=== PATIENT | female | born 1975 | race Caucasian/White ===

== ENCOUNTER 2017-01-22 13:52 | Emergency (ER) | payer SELFPAY ==
[2017-01-22 14:08] VITALS: TEMP 99
[2017-01-22] MEDS ORDERED: AZITHROMYCIN 250 MG TAB PO ONE (14:31)
[2017-01-22] MEDS ORDERED: cefTRIAXone SODIUM 1 GM VIAL IM ONE (14:31)
[2017-01-22] MEDS ORDERED: LIDOCAINE 1% 10 ML VIAL INJ ONE (14:34)
--- NOTE | 2017-01-22 14:36 | ED.PDOC ---
History of Present Illness - General Chief Complaint: ENT Problem Stated Complaint: Sore throat Time Seen by Provider: 01/22/17 14:07 Source: patient Exam Limitations: no limitations - History of Present Illness Initial Comments: the patient is a 41-year-old female presenting to the emergency room secondary to pharyngitis present for the last 2448 hrs. Symptoms are fairly isolated. Mild pain with swallowing. No shortness of breath. No rash. No fevers. No urinary symptoms. Timing/Duration: 24 hours Severity: mild Improving Factors: nothing Worsening Factors: nothing Associated Symptoms: denies symptoms Allergies/Adverse Reactions: Allergies NO KNOWN ALLERGY Allergy (Verified 05/10/12 13:11) Home Medications: Ambulatory Orders Famotidine [Pepcid Tab] 20 mg PO DAILY 01/22/17 Review of Systems - Review of Systems Constitutional: States: no symptoms reported EENTM: States: throat pain Respiratory: States: no symptoms reported Cardiology: States: no symptoms reported Gastrointestinal/Abdominal: States: no symptoms reported Genitourinary: States: no symptoms reported Musculoskeletal: States: no symptoms reported Skin: States: no symptoms reported Neurological: States: no symptoms reported Endocrine: States: no symptoms reported All other Systems: No Change from Baseline Past Medical History (General) - Patient Medical History Hx Stroke: No Hx Congestive Heart Failure: No Hx Diabetes: No Hx Gastroesophageal Reflux: Yes Hx MRSA: No Surgical History: cholecystectomy, other - Vaccination History Hx Influenza Vaccination: No Hx Pneumococcal Vaccination: No - Social History Hx Tobacco Use: Yes - Quit 12/2016 Hx Alcohol Use: No - Female History Patient is a Female of Child Bearing Age (10 -59 yrs old): Yes Patient : No Family Medical History - Family History Mother Living Status: Still Living Hx Family Hypertension: Yes Hx Family Stroke: Yes Hx Family Diabetes: Yes Physical Exam - Physical Exam General Appearance: Alert, Comfortable, No apparent distress Eye Exam: bilateral normal Ears, Nose, Throat: pharyngeal erythema - moderate posterior erythema bilaterally. No evidence of abscess. No significant exudate. Mild tonsillar swelling. Neck: full range of motion, normal inspection Respiratory: lungs clear, normal breath sounds, no respiratory distress, no accessory muscle use Cardiovascular/Chest: normal peripheral pulses, regular rate, rhythm, no edema Peripheral Pulses: radial,right: 2+, radial,left: 2+ Gastrointestinal/Abdominal: non tender, soft Rectal Exam: deferred Back Exam: normal inspection, no CVA tenderness Extremity: normal range of motion, non-tender, normal inspection, no pedal edema , normal capillary refill Neurologic: alert, normal mood/affect, oriented x 3 Skin Exam: normal color Comments: Vital Signs - 24 hr 01/22/17 14:07 Temperature 99.0 F Pulse Rate [ 68 Left Radial] Respiratory 20 Rate Blood Pressure 125/80 [Left Arm] O2 Sat by Pulse 97 Oximetry Progress - Progress Progress: 01/22/17 14:34 rapid strep is negative. the patient is a 41-year-old female presenting with a significant pharyngitis. She has tested negative for strep. The patient is being given a dose of oral antibiotics here to cover other potential bacterial pathogens, given her level of discomfort, however a viral source is most likely. No evidence of abscess formation. Motrin can be used for discomfort. ER warnings were given for any significant worsening. Departure - Departure Clinical Impression: Pharyngitis Qualifiers: Pharyngitis/tonsillitis etiology: unspecified etiology Qualified Code(s): J02.9 - Acute pharyngitis, unspecified Disposition: Discharge to Home or Self Care Condition: Fair Departure Forms: ED Discharge - Pt. Copy, Patient Portal Self Enrollment Instructions: Sore Throat Diet: regular diet Activity: increase activity as tolerated Home Medications: Ambulatory Orders Famotidine [Pepcid Tab] 20 mg PO DAILY 01/22/17 Additional Instructions: the patient is a 41-year-old female presenting with a significant pharyngitis. She has tested negative for strep. The patient is being given a dose of oral antibiotics here to cover other potential bacterial pathogens, given her level of discomfort, however a viral source is most likely. No evidence of abscess formation. Motrin can be used for discomfort. ER warnings were given for any significant worsening.
[2017-01-22 15:27] VITALS: BP 124/80; O2SAT 98
== END 2017-01-22 15:03 | disposition home or self-care (01) ==
LOC: ER 13:52
DX: J02.9 Acute pharyngitis, unspecified (principal); Z87.891 Personal history of nicotine dependence
CPT/HCPCS: 87070; 87651; J0696; Q0144

== ENCOUNTER → 2017-11-16 | Outpatient (CLI) | payer OTHER | LOC: LAB.O 17:46 | PROVIDERS: ATTEND Nurse Practitioner Family | DX: N93.9 Abnormal uterine and vaginal bleeding, unspecified (principal) ==

== ENCOUNTER 2018-05-02 15:27 | Emergency (ER) | payer OTHER ==
[2018-05-02] MEDS ORDERED: IBUPROFEN 200 MG TAB PO ONE (15:50)
--- NOTE | 2018-05-02 16:27 | ED.PDOC ---
History of Present Illness - General Chief Complaint: ENT Problem Stated Complaint: Cough, congestion, sore throat Time Seen by Provider: 05/02/18 15:37 Source: patient Exam Limitations: no limitations - History of Present Illness Initial Comments: the patient is a 43-year-old female presenting to emergency room secondary to cough sore throat and runny nose for the last 24 hours. Mild malaise possible low-grade fevers and mild body aches. She has been exposed to strep. No real shortness of breath. Vital signs are reassuring with the exception of mild fever. Timing/Duration: 24 hours Severity: moderate Improving Factors: nothing Worsening Factors: nothing Associated Symptoms: cough, fever/chills, loss of appetite, malaise Allergies/Adverse Reactions: Allergies NO KNOWN ALLERGY Allergy (Verified 05/02/18 15:47) Home Medications: Ambulatory Orders Famotidine [Pepcid Tab] 20 mg PO DAILY 01/22/17 Review of Systems - Review of Systems Constitutional: States: fever, malaise EENTM: States: nose congestion, throat pain Respiratory: States: cough Cardiology: States: no symptoms reported Gastrointestinal/Abdominal: States: no symptoms reported Genitourinary: States: no symptoms reported Musculoskeletal: States: no symptoms reported Skin: States: no symptoms reported Neurological: States: no symptoms reported Endocrine: States: no symptoms reported All other Systems: No Change from Baseline Past Medical History (General) - Patient Medical History Hx Stroke: No Hx Congestive Heart Failure: No Hx Diabetes: No Hx Gastroesophageal Reflux: Yes Hx MRSA: No Surgical History: cholecystectomy, other - Vaccination History Hx Influenza Vaccination: No Hx Pneumococcal Vaccination: No - Social History Hx Tobacco Use: - Vapes Hx Alcohol Use: No - Female History Patient is a Female of Child Bearing Age (10 -59 yrs old): Yes Patient : No Family Medical History - Family History Mother Living Status: Still Living Hx Family Hypertension: Yes Hx Family Stroke: Yes Hx Family Diabetes: Yes Physical Exam - Physical Exam General Appearance: Alert, Comfortable, No apparent distress Eye Exam: bilateral normal Ears, Nose, Throat: hearing grossly normal, nasal congestion, pharyngeal erythema Neck: full range of motion, supple Respiratory: lungs clear, normal breath sounds, no respiratory distress, no accessory muscle use Cardiovascular/Chest: normal peripheral pulses, regular rate, rhythm, no edema Peripheral Pulses: radial,right: 2+, radial,left: 2+ Gastrointestinal/Abdominal: non tender, soft Rectal Exam: deferred Back Exam: no CVA tenderness, no vertebral tenderness Extremity: non-tender, normal inspection, no pedal edema, normal capillary refill Neurologic: oncology rep specialist II-XII nml as tested, alert, normal mood/affect, oriented x 3 Skin Exam: normal color Comments: Vital Signs - 24 hr 05/02/18 15:43 Temperature 100.9 F H Pulse Rate [ 87 Right Radial] Respiratory 22 Rate Blood Pressure 133/75 [Right Arm] O2 Sat by Pulse 98 Oximetry Progress - Progress Progress: 05/02/18 16:26 the patient is a 43-year-old female presenting to the emergency room with what appears to be a common cold. She needs to keep herself well-hydrated. Motrin can be used every 8 hours as needed to reduce symptoms. [id number] Flonase or Rhinocort can be used twice daily in each nostril to help reduce symptoms as well. She has tested negative for flu and strep here today. The worst of the symptoms will last probably another 48 hours followed by another week's worth of cough. Keep follow-up with primary care doctor next week. Departure - Departure Clinical Impression: Common cold Disposition: Discharge to Home or Self Care Condition: Fair Departure Forms: ED Discharge - Pt. Copy, Patient Portal Self Enrollment Instructions: Cough, Runny Nose, and the Common Cold (DC) Diet: regular diet Activity: increase activity as tolerated Referrals: Holley Perez NP [Primary Care Provider] - 1-2 Weeks Home Medications: Ambulatory Orders Famotidine [Pepcid Tab] 20 mg PO DAILY 01/22/17 Additional Instructions: the patient is a 43-year-old female presenting to the emergency room with what appears to be a common cold. She needs to keep herself well-hydrated. Motrin can be used every 8 hours as needed to reduce symptoms. [id number] Flonase or Rhinocort can be used twice daily in each nostril to help reduce symptoms as well. She has tested negative for flu and strep here today. The worst of the symptoms will last probably another 48 hours followed by another week's worth of cough. Keep follow-up with primary care doctor next week.
[2018-05-02 16:38] VITALS: BP 132/66; TEMP 100; O2SAT 96
== END 2018-05-02 16:35 | disposition home or self-care (01) ==
LOC: ER 15:27
DX: J00 Acute nasopharyngitis [common cold] (principal); K21.9 Gastro-esophageal reflux disease without esophagitis; F17.290 Nicotine dependence, other tobacco product, uncomplicated